=== PATIENT | male | born 1965 ===

== ENCOUNTER → 2020-09-24 15:00 | Outpatient (CLI) | payer OTHER ==
[~2020-09-24 15:00] MED LIST: ATORVASTATIN CA10 MG; BAYER CHILDREN'81 MG; PRILOSEC10 M1; ZESTRIL10 M1
== END | disposition home or self-care (01) ==
LOC: PPH VACUNA 15:00
DX: Z23 Encounter for immunization (principal)

== ENCOUNTER → 2020-10-15 08:00 | Outpatient (CLI) | payer OTHER | END | disposition home or self-care (01) | LOC: PPH VACUNA 08:00 | DX: Z23 Encounter for immunization (principal) ==